=== PATIENT | female | born 1935 | race Caucasian/White ===

== ENCOUNTER 2017-08-20 13:26 | Inpatient (IN) | payer OTHER ==
[~2017-08-20] VITALS: Ht 154.9 cm; Wt 78.6 kg
[2017-08-20 15:10] LABS: Basophils # (auto) 0.1 uL; Basophils % (auto) 0.9 % (0.0-2.0); Eosinophils # (auto) 0.2 uL; Eosinophils % (auto) 1.5 % (0.0-7.0); Hematocrit 35.5 % (36.0-46.0); Hemoglobin 11.7 g/dL (12.2-16.2); Lymphocytes # (auto) 0.7 uL; Lymphocytes % (auto) 4.9 % (10.0-50.0); Mean Corpuscular Hemoglobin 28.6 pg (28.0-32.0); Mean Corpuscular Hgb Conc. 32.9 g/dL (32.0-36.0); Mean Corpuscular Volume 86.8 fL (80.0-100.0); Monocytes # (auto) 0.4 uL; Monocytes % (auto) 3.1 % (0.0-12.0); Neutrophils # (auto) 12.6 uL; Neutrophils % (auto) 89.6 % (37.0-80.0); Platelet Count (auto) 208 10^3/uL (140-450); Red Blood Cells 4.09 10^6/uL (4.0-5.20); Red Cell Distribution Width 13.8 % (11.8-14.3)
[2017-08-20 15:19] LABS: Lactic Acid w/Reflex 2.1 mmol/L (0.4-2.0)
[2017-08-20 15:21] LABS: Albumin 3.5 g/dL (3.4-5.0); BUN/Creatinine Ratio 23.3; Bilirubin, Total 0.5 mg/dL (0.2-1.0); Calcium 8.1 mg/dL (8.5-10.1); Potassium 5.3 mmol/L (3.5-5.1); Total Protein 6.8 g/dL (6.4-8.2)
[2017-08-20] MEDS ORDERED: SODIUM CHLORIDE 0.9% 1,000 ML IVB ONE (16:32)
[2017-08-20] MEDS ORDERED: SODIUM CHLORIDE 0.9% 2,000 ML IV ONE (16:45)
[2017-08-20] MEDS ORDERED: cefTRIAXone 1GM/10ml IVPUSH 10 ML IV ONE (16:45)
[2017-08-20] MEDS ORDERED: ACETAMINOPHEN 325 MG TAB PO ONE ×2 (16:45→17:15)
[2017-08-20 17:39] LABS: Magnesium 1.3 mg/dL (1.6-2.6)
[2017-08-20 17:59] LABS: INR 0.96 (0.9-1.15); Prothrombin Time 10.5 sec (9.37-12.3)
[2017-08-20] MEDS ORDERED: MORPHINE SULFATE 4 MG/ML SYR/VIAL IV PRN ×2 (18:00)
[2017-08-20] MEDS ORDERED: NITROGLYCERIN 0.4 MG SL TAB SL PRN (18:00)
[2017-08-20] MEDS ORDERED: ALBUTEROL SULF 2.5 MG/0.5ML(0.5%) NEB SOLN NEB PRN (18:00)
[2017-08-20] MEDS ORDERED: TEMAZEPAM 15 MG CAP PO PRN (18:00)
[2017-08-20] MEDS ORDERED: LORazepam 0.5 MG TAB PO PRN (18:00)
[2017-08-20] MEDS ORDERED: LACTULOSE 20Gm/30ML SOLN PO PRN (18:00)
[2017-08-20] MEDS ORDERED: PROMETHAZINE HCL 25 MG/ML 1ML IV PRN (18:00)
[2017-08-20] MEDS ORDERED: DEXTROSE (50%) 50ML SYRG IV PRN (18:00)
[2017-08-20] MEDS: SODIUM CHLORIDE 0.9% 1,000 ML IV SCH (18:41)
[2017-08-20 19:24] VITALS: BP 118/57
[2017-08-20] MEDS: ACCU-CHEK COMFORT CURVE STRIP VI SCH (19:43)
[2017-08-20] MEDS: InsuLIN REG 1unit/0.01ml Soln (100units/ml) SC SCH (19:43)
[2017-08-20] MEDS ORDERED: SODIUM POLYSTYRENE SULF 15GM/60ML SUSP PO ONE (20:15)
[2017-08-20 20:34] LABS: CRP High Sensitivity 10.2 mg/dL (< 0.3)
[2017-08-20 21:23] LABS: Urine Bacteria FEW /hpf (None Seen); Urine Blood Negative /uL (Negative); Urine Specific Gravity 1.007 (1.001-1.035); Urine WBC <1 /hpf (0 - 5)
[2017-08-20] MEDS: MAGNESIUM SULFATE 1GM/100ML 100 ML IV SCH ×2 (22:00→23:11)
[2017-08-21] VITALS (8 sets, daily range): BP systolic 112–147; BP diastolic 47–71
[2017-08-21] MEDS: metroNIDAZOLE 500MG/100ML 100 ML IV SCH ×3 (02:17→12:02)
[2017-08-21] MEDS: ACCU-CHEK COMFORT CURVE STRIP VI SCH ×4 (02:18→11:22)
[2017-08-21] MEDS: SODIUM CHLORIDE 0.9% 1,000 ML IV SCH ×2 (02:18→09:44)
[2017-08-21] MEDS: ACETAMINOPHEN 500 MG TAB PO PRN ×2 (04:08→13:48)
[2017-08-21] MEDS: InsuLIN REG 1unit/0.01ml Soln (100units/ml) SC SCH ×6 (04:33→21:33)
[2017-08-21 06:23] LABS: Basophils # (auto) 0 uL; Basophils % (auto) 0.6 % (0.0-2.0); Eosinophils # (auto) 0.2 uL; Eosinophils % (auto) 2.6 % (0.0-7.0); Hematocrit 30.4 % (36.0-46.0); Hemoglobin 10.3 g/dL (12.2-16.2); Lymphocytes # (auto) 0.4 uL; Lymphocytes % (auto) 6.1 % (10.0-50.0); Mean Corpuscular Hemoglobin 29.4 pg (28.0-32.0); Mean Corpuscular Hgb Conc. 33.8 g/dL (32.0-36.0); Monocytes # (auto) 0.3 uL; Monocytes % (auto) 4.6 % (0.0-12.0); Neutrophils # (auto) 6.4 uL; Neutrophils % (auto) 86.1 % (37.0-80.0); Platelet Count (auto) 159 10^3/uL (140-450); Red Cell Distribution Width 13.6 % (11.8-14.3); White Blood Cell 7.4 10^3/uL (4.4-10.8)
[2017-08-21] MEDS ORDERED: LISI10TA6 PO (06:29)
[2017-08-21] MEDS ORDERED: LEVO100T8 PO (06:29)
[2017-08-21] MEDS ORDERED: GABA-339 PO (06:29)
[2017-08-21] MEDS ORDERED: METF-370 PO (06:31)
[2017-08-21] MEDS ORDERED: SIMV-13 PO (06:34)
[2017-08-21 06:41] LABS: Albumin 2.5 g/dL (3.4-5.0); BUN/Creatinine Ratio 19.3; Potassium 3.6 mmol/L (3.5-5.1)
[2017-08-21 06:44] LABS: Bilirubin, Total 0.3 mg/dL (0.2-1.0); Total Protein 5.4 g/dL (6.4-8.2)
[2017-08-21] MEDS ORDERED: METO25TA5 PO (07:04)
[2017-08-21] MEDS: cefTRIAXone 1GM/10ml IVPUSH 10 ML IV SCH (09:25)
[2017-08-21] MEDS: ENOXAPARIN SOD 30 MG/0.3 ML SYRINGE SC SCH (09:25)
[2017-08-21] MEDS: AZITHROMYCIN 500MG/ 250ML 250 ML IV SCH (09:25)
[2017-08-21] MEDS ORDERED: ENOXAPARIN SOD 40 MG/0.4 ML SYRINGE SC SCH ×2 (10:00)
[2017-08-21] MEDS ORDERED: predniSONE 20 MG TAB PO ONE (15:00)
[2017-08-21] MEDS ORDERED: FUROSEMIDE 20 MG/2 ML VIAL IV ONE (15:45)
[2017-08-21] MEDS ORDERED: predniSONE 20 MG TAB PO SCH (22:00)
[2017-08-22 04:57] VITALS: BP 140/66
[2017-08-22] MEDS: InsuLIN REG 1unit/0.01ml Soln (100units/ml) SC SCH ×3 (06:38→17:00)
[2017-08-22 09:00] VITALS: BP 136/43
[2017-08-22] MEDS: cefTRIAXone 1GM/10ml IVPUSH 10 ML IV SCH (09:39)
[2017-08-22] MEDS: ENOXAPARIN SOD 30 MG/0.3 ML SYRINGE SC SCH (09:40)
[2017-08-22] MEDS: AZITHROMYCIN 500MG/ 250ML 250 ML IV SCH (09:40)
[2017-08-22] MEDS ORDERED: predniSONE 20 MG TAB PO SCH (11:01)
[2017-08-22 13:00] VITALS: BP 139/58
[2017-08-22 16:58] VITALS: BP 148/69
[2017-08-23] MEDS ORDERED: LEVOTHYROXINE SODIUM 100 MCG TAB PO SCH (07:00)
[2017-08-23] MEDS ORDERED: LISINOPRIL 10 MG TAB PO SCH (10:00)
[2017-08-23] MEDS ORDERED: metFORMIN HYDROCHLORIDE 500 MG TAB PO SCH (10:00)
[2017-08-23] MEDS ORDERED: METOPROLOL TARTRATE 25 MG TAB PO SCH (10:00)
== END 2017-08-22 19:20 | DRG 871 ==
LOC: ER 13:33 → TELE 13:34 → EAST 23:44 → TELE-EAST 08-21 03:55 → EAST 08-21 22:19
PROVIDERS: ADMIT Internal Medicine; ATTEND Hospitalist
DX: A41.9 Sepsis, unspecified organism (principal); J96.01 Acute respiratory failure with hypoxia; J18.1 Lobar pneumonia, unspecified organism; E11.22 Type 2 diabetes mellitus with diabetic chronic kidney disease; N18.3 Chronic kidney disease, stage 3 (moderate); E11.65 Type 2 diabetes mellitus with hyperglycemia; N39.0 Urinary tract infection, site not specified; E87.1 Hypo-osmolality and hyponatremia; D64.9 Anemia, unspecified; E03.9 Hypothyroidism, unspecified; E78.5 Hyperlipidemia, unspecified; E66.9 Obesity, unspecified; R19.7 Diarrhea, unspecified; I12.9 Hypertensive chronic kidney disease with stage 1 through stage 4 chronic kidney disease, or unspecified chronic kidney disease; K59.00 Constipation, unspecified; E87.6 Hypokalemia; Z79.4 Long term (current) use of insulin; Z82.49 Family history of ischemic heart disease and other diseases of the circulatory system; Z68.32 Body mass index [BMI] 32.0-32.9, adult; Z88.6 Allergy status to analgesic agent; Z90.49 Acquired absence of other specified parts of digestive tract; Z79.899 Other long term (current) drug therapy
CPT/HCPCS: 36415; 51702; 71045; 71046; 74176; 80053; 81001; 82150; 82962; 83036; 83605; 83690; 83735; 84484; 85025; 85610; 85652; 85730; 86141; 87040; 87086; 93306; 94761; 96361; 96365; 96375; J1815; J3490

== ENCOUNTER 2017-09-02 20:00 | Inpatient (IN) | payer OTHER ==
[~2017-09-02] VITALS: Ht 154.9 cm; Wt 77.7 kg
[~2017-09-02 20:00] MED LIST: GABA-339 PO; LEVO100T8 PO; LISI10TA6 PO; METF-370 PO; METO25TA5 PO; SIMV-13 PO
[2017-09-02] MEDS ORDERED: SODIUM CHLORIDE 0.9% 1,000 ML IV ONE ×2 (20:45→23:00)
[2017-09-02 20:59] LABS: Basophils # (auto) 0 uL; Basophils % (auto) 0.2 % (0.0-2.0); Eosinophils # (auto) 0 uL; Eosinophils % (auto) 0.2 % (0.0-7.0); Hematocrit 38.3 % (36.0-46.0); Hemoglobin 12.5 g/dL (12.2-16.2); Lymphocytes # (auto) 0.5 uL; Lymphocytes % (auto) 2.7 % (10.0-50.0); Mean Corpuscular Hemoglobin 28.4 pg (28.0-32.0); Mean Corpuscular Hgb Conc. 32.6 g/dL (32.0-36.0); Mean Corpuscular Volume 87.1 fL (80.0-100.0); Monocytes # (auto) 0.2 uL; Monocytes % (auto) 1.2 % (0.0-12.0); Neutrophils # (auto) 18.1 uL; Neutrophils % (auto) 95.7 % (37.0-80.0); Platelet Count (auto) 270 10^3/uL (140-450); Red Cell Distribution Width 14.1 % (11.8-14.3); White Blood Cell 18.9 10^3/uL (4.4-10.8)
[2017-09-02 21:12] LABS: INR 0.93 (0.9-1.15); Partial Thromboplastin Time 24.2 sec (23.78-33.04)
[2017-09-02 21:20] LABS: Lactic Acid w/Reflex 2.5 mmol/L (0.4-2.0)
[2017-09-02 21:22] LABS: Urine Bacteria NONE SEEN /hpf (None Seen); Urine Blood Negative /uL (Negative); Urine Specific Gravity 1.016 (1.001-1.035); Urine WBC 23 /hpf (0 - 5)
[2017-09-02 21:25] LABS: Alanine Aminotransferase 27 U/L (13-56); Albumin 3.5 g/dL (3.4-5.0); Alkaline Phosphatase 58 U/L (45-117); Anion Gap 9 (5-15); Aspartate Aminotransferase 23 U/L (15-37); BUN/Creatinine Ratio 12.3; Bilirubin, Total 0.4 mg/dL (0.2-1.0); Blood Urea Nitrogen 19 mg/dL (7-18); CRP High Sensitivity 0.24 mg/dL (< 0.3); Calcium 8.4 mg/dL (8.5-10.1); Carbon Dioxide 24 mmol/L (21-32); Chloride 104 mmol/L (98-107); GFR African American 41 mL/min; GFR Non-African American 34 mL/min; Glucose 198 mg/dL (74-106); Potassium 4.7 mmol/L (3.5-5.1); Sodium 137 mmol/L (136-145); Total Protein 6.8 g/dL (6.4-8.2)
[2017-09-02] MEDS ORDERED: ACETAMINOPHEN 500 MG TAB PO ONE (21:30)
[2017-09-02] MEDS ORDERED: PIPERACILLIN-TAZO 4.5GM 100 ML IV ONE (23:00)
[2017-09-02] MEDS ORDERED: CEFTRIAXONE SODIUM 2 GM in D5W 5% 50 ML IV ONE (23:00)
[2017-09-02] MEDS ORDERED: cefTRIAXone SOD 1,000 MG VL ONE (23:43)
[2017-09-03] MEDS ORDERED: MORPHINE SULFATE 4 MG/ML SYR/VIAL IV ONE
[2017-09-03] MEDS ORDERED: ONDANSETRON HCL 4 MG/2 ML VIAL IV PRN (00:45)
[2017-09-03] MEDS ORDERED: DEXTROSE (50%) 50ML SYRG IV PRN (00:45)
[2017-09-03] MEDS ORDERED: VANCOMYCIN 1GM/250ML 250 ML IV ONE (00:45)
[2017-09-03] MEDS ORDERED: SODIUM CHLORIDE 0.9% 1,000 ML IV SCH (00:45)
[2017-09-03] MEDS ORDERED: TEMAZEPAM 15 MG CAP PO PRN (00:45)
[2017-09-03] MEDS ORDERED: MORPHINE SULFATE 4 MG/ML SYR/VIAL IV PRN (00:45)
[2017-09-03] MEDS ORDERED: ACETAMINOPHEN 325 MG TAB PO PRN (00:45)
[2017-09-03] MEDS ORDERED: NITROGLYCERIN 0.4 MG SL TAB SL PRN (00:45)
[2017-09-03] MEDS: ACCU-CHEK COMFORT CURVE STRIP VI SCH ×3 (06:25→17:34)
[2017-09-03] MEDS: PIPERACILLIN-TAZOB 3.375GM 100 ML IV SCH ×3 (06:25→17:34)
[2017-09-03] MEDS: InsuLIN REG 1unit/0.01ml Soln (100units/ml) SC SCH ×3 (06:25→17:34)
[2017-09-03 06:50] LABS: Albumin 2.6 g/dL (3.4-5.0); BUN/Creatinine Ratio 13.5; Calcium 7.3 mg/dL (8.5-10.1); Potassium 4.7 mmol/L (3.5-5.1)
[2017-09-03 06:53] LABS: Bilirubin, Total 0.4 mg/dL (0.2-1.0); Total Protein 5.6 g/dL (6.4-8.2)
[2017-09-03] MEDS: ENOXAPARIN SOD 30 MG/0.3 ML SYRINGE SC SCH (07:42)
[2017-09-03] MEDS: PANTOPRAZOLE 40 MG TAB PO SCH (07:42)
[2017-09-03] MEDS: LEVOTHYROXINE SODIUM 100 MCG TAB PO SCH (07:42)
[2017-09-03 10:20] LABS: Lactic Acid w/Reflex 3.1 mmol/L (0.4-2.0)
[2017-09-03] MEDS ORDERED: SODIUM CHLORIDE 0.9% 1,000 ML IV ONE (11:30)
[2017-09-03] MEDS: SODIUM CHLORIDE 0.9% 1,000 ML IV SCH (11:39)
[2017-09-03] MEDS ORDERED: VANCOMYCIN PER PHARMACY 0 MG IV SCH (14:00)
[2017-09-03] MEDS: ATORVASTATIN 20 MG TAB PO SCH (22:04)
[2017-09-04] MEDS: PIPERACILLIN-TAZOB 3.375GM 100 ML IV SCH ×2 (00:39→06:25)
[2017-09-04] MEDS: InsuLIN REG 1unit/0.01ml Soln (100units/ml) SC SCH ×4 (00:51→17:39)
[2017-09-04] MEDS: SODIUM CHLORIDE 0.9% 1,000 ML IV SCH ×2 (01:10→13:40)
[2017-09-04] MEDS: ACCU-CHEK COMFORT CURVE STRIP VI SCH ×4 (06:25→17:39)
[2017-09-04 06:39] LABS: Basophils # (auto) 0.1 uL; Basophils % (auto) 1.1 % (0.0-2.0); Eosinophils # (auto) 0.4 uL; Hemoglobin 10.9 g/dL (12.2-16.2); Lymphocytes # (auto) 0.8 uL; Lymphocytes % (auto) 15.5 % (10.0-50.0); Mean Corpuscular Hemoglobin 28.9 pg (28.0-32.0); Mean Corpuscular Hgb Conc. 33.1 g/dL (32.0-36.0); Mean Corpuscular Volume 87.5 fL (80.0-100.0); Monocytes # (auto) 0.4 uL; Monocytes % (auto) 6.8 % (0.0-12.0); Neutrophils # (auto) 3.6 uL; Neutrophils % (auto) 69.6 % (37.0-80.0); Platelet Count (auto) 163 10^3/uL (140-450); Red Blood Cells 3.77 10^6/uL (4.0-5.20); Red Cell Distribution Width 14.6 % (11.8-14.3); White Blood Cell 5.1 10^3/uL (4.4-10.8)
[2017-09-04] MEDS: LEVOTHYROXINE SODIUM 100 MCG TAB PO SCH (06:39)
[2017-09-04 06:50] LABS: Albumin 2.4 g/dL (3.4-5.0); BUN/Creatinine Ratio 9.1; Calcium 7.5 mg/dL (8.5-10.1); Potassium 4.3 mmol/L (3.5-5.1)
[2017-09-04 06:52] LABS: Bilirubin, Total 0.5 mg/dL (0.2-1.0); Total Protein 5.7 g/dL (6.4-8.2)
[2017-09-04] MEDS: PANTOPRAZOLE 40 MG TAB PO SCH (09:53)
[2017-09-04] MEDS: ENOXAPARIN SOD 30 MG/0.3 ML SYRINGE SC SCH (09:53)
[2017-09-04] MEDS ORDERED: VANCOMYCIN 750 MG in D5W 5% 250 ML IV SCH (10:00)
[2017-09-04] MEDS ORDERED: LEVOFLOXACIN 250 MG TAB PO ONE (10:45)
[2017-09-04 12:00] VITALS: BP 131/50
[2017-09-04 13:00] VITALS: BP 131/50
[2017-09-04 17:00] VITALS: BP 159/79
[2017-09-04] MEDS ORDERED: VANCOMYCIN PER PHARMACY 0 MG IV SCH ×2 (18:00→18:15)
[2017-09-04 20:00] VITALS: BP 143/64
[2017-09-04 22:00] VITALS: BP 143/64
[2017-09-04] MEDS: ATORVASTATIN 20 MG TAB PO SCH (22:12)
[2017-09-05] MEDS: InsuLIN REG 1unit/0.01ml Soln (100units/ml) SC SCH ×4 (00:48→17:28)
[2017-09-05 05:00] VITALS: BP 143/72
[2017-09-05] MEDS: ACCU-CHEK COMFORT CURVE STRIP VI SCH ×4 (06:00→17:28)
[2017-09-05 06:03] LABS: Basophils # (auto) 0.1 uL; Basophils % (auto) 1.8 % (0.0-2.0); Eosinophils # (auto) 0.3 uL; Eosinophils % (auto) 6.8 % (0.0-7.0); Hematocrit 32.9 % (36.0-46.0); Hemoglobin 11.1 g/dL (12.2-16.2); Lymphocytes # (auto) 1.1 uL; Lymphocytes % (auto) 23.3 % (10.0-50.0); Mean Corpuscular Hemoglobin 28.9 pg (28.0-32.0); Mean Corpuscular Hgb Conc. 33.7 g/dL (32.0-36.0); Mean Corpuscular Volume 85.9 fL (80.0-100.0); Monocytes # (auto) 0.4 uL; Monocytes % (auto) 7.7 % (0.0-12.0); Neutrophils # (auto) 2.8 uL; Neutrophils % (auto) 60.4 % (37.0-80.0); Platelet Count (auto) 186 10^3/uL (140-450); Red Blood Cells 3.82 10^6/uL (4.0-5.20); Red Cell Distribution Width 14.2 % (11.8-14.3); White Blood Cell 4.6 10^3/uL (4.4-10.8)
[2017-09-05 06:16] LABS: Potassium 4.6 mmol/L (3.5-5.1)
[2017-09-05 06:21] LABS: BUN/Creatinine Ratio 7.4; Calcium 8.5 mg/dL (8.5-10.1)
[2017-09-05] MEDS: LEVOTHYROXINE SODIUM 100 MCG TAB PO SCH (06:34)
[2017-09-05 08:20] VITALS: BP 150/74
[2017-09-05 08:42] VITALS: BP 150/74
[2017-09-05] MEDS ORDERED: VANCOMYCIN 1GM/250ML 250 ML IV SCH (09:00)
[2017-09-05] MEDS: SODIUM CHLORIDE 0.9% 1,000 ML IV SCH ×2 (09:03→14:40)
[2017-09-05] MEDS: PANTOPRAZOLE 40 MG TAB PO SCH (09:04)
[2017-09-05] MEDS ORDERED: ENOXAPARIN SOD 40 MG/0.4 ML SYRINGE SC SCH (10:00)
[2017-09-05 13:00] VITALS: BP 152/72
[2017-09-05] MEDS ORDERED: AMOXICILLIN/CLAVUL 875 MG TAB PO ONE (15:15)
[2017-09-05 17:00] VITALS: BP 150/70
== END 2017-09-05 20:05 | DRG 871 ==
LOC: ER 20:00 → TELE 20:01 → TELE-EAST 09-04 12:21 → UNDODISIN 09-04 17:45
PROVIDERS: ADMIT Nurse Practitioner; ATTEND Internal Medicine
DX: A41.9 Sepsis, unspecified organism (principal); G93.41 Metabolic encephalopathy; N17.9 Acute kidney failure, unspecified; E87.2 Acidosis; N39.0 Urinary tract infection, site not specified; E11.22 Type 2 diabetes mellitus with diabetic chronic kidney disease; E66.01 Morbid (severe) obesity due to excess calories; N18.3 Chronic kidney disease, stage 3 (moderate); I12.9 Hypertensive chronic kidney disease with stage 1 through stage 4 chronic kidney disease, or unspecified chronic kidney disease; E78.5 Hyperlipidemia, unspecified; Z82.49 Family history of ischemic heart disease and other diseases of the circulatory system; Z80.0 Family history of malignant neoplasm of digestive organs; Z83.3 Family history of diabetes mellitus; I70.0 Atherosclerosis of aorta; Z87.01 Personal history of pneumonia (recurrent); Z71.3 Dietary counseling and surveillance; Z68.32 Body mass index [BMI] 32.0-32.9, adult
CPT/HCPCS: 36415; 36600; 51702; 71045; 80048; 80053; 80202; 81001; 82805; 82962; 83605; 83880; 84484; 85025; 85610; 85730; 86141; 87040; 87081; 87086; 93005; 96365; 96367; 96375; 97110; 97116; 97163; 97530; 99291; J0696; J1815; J2543; J7060

== ENCOUNTER 2017-09-25 17:27 | Emergency (ER) | payer OTHER, MEDICARE ==
[~2017-09-25] VITALS: Ht 154.9 cm; Wt 77.1 kg
[2017-09-25 17:45] VITALS: BP 136/61
[2017-09-25] MEDS ORDERED: ACETAMINOPHEN 325 MG TAB PO ONE (18:30)
[2017-09-25 19:27] LABS: Basophils # (auto) 0.1 uL; Basophils % (auto) 0.9 % (0.0-2.0); Eosinophils # (auto) 0.2 uL; Eosinophils % (auto) 1.7 % (0.0-7.0); Hematocrit 41.7 % (36.0-46.0); Hemoglobin 13.9 g/dL (12.2-16.2); Lymphocytes # (auto) 2.4 uL; Lymphocytes % (auto) 23.1 % (10.0-50.0); Mean Corpuscular Hemoglobin 31.7 pg (28.0-32.0); Mean Corpuscular Hgb Conc. 33.3 g/dL (32.0-36.0); Mean Corpuscular Volume 95.3 fL (80.0-100.0); Monocytes # (auto) 0.8 uL; Monocytes % (auto) 7.6 % (0.0-12.0); Neutrophils # (auto) 6.9 uL; Neutrophils % (auto) 66.7 % (37.0-80.0); Nucleated Red Blood Cells % 0.1 %; Platelet Count (auto) 242 10^3/uL (140-450); Red Blood Cells 4.38 10^6/uL (4.0-5.20); Red Cell Distribution Width 14.3 % (11.8-14.3); White Blood Cell 10.4 10^3/uL (4.4-10.8)
[2017-09-25 19:39] LABS: Chloride 113 mmol/L (98-107); Potassium 3.8 mmol/L (3.5-5.1); Sodium 143 mmol/L (136-145)
[2017-09-25 19:43] LABS: Alanine Aminotransferase 22 U/L (13-56); Albumin 3.8 g/dL (3.4-5.0); Anion Gap 10 (5-15); Aspartate Aminotransferase 17 U/L (15-37); BUN/Creatinine Ratio 9.4; Blood Urea Nitrogen 10 mg/dL (7-18); Calcium 8.2 mg/dL (8.5-10.1); Carbon Dioxide 20 mmol/L (21-32); GFR African American 64 mL/min; GFR Non-African American 53 mL/min; Glucose 89 mg/dL (74-106)
[2017-09-25 19:45] LABS: Alkaline Phosphatase 93 U/L (45-117); Bilirubin, Total 0.2 mg/dL (0.2-1.0); Total Protein 7.7 g/dL (6.4-8.2)
[2017-09-25 21:11] LABS: Urine Bacteria FEW /hpf (None Seen); Urine Blood Negative /uL (Negative); Urine Specific Gravity 1.016 (1.001-1.035); Urine WBC 17 /hpf (0 - 5)
== END 2017-09-25 21:29 | disposition left against medical advice (07) ==
LOC: ER 17:27
DX: R51 Headache (principal); R68.83 Chills (without fever); Z53.21 Procedure and treatment not carried out due to patient leaving prior to being seen by health care provider
CPT/HCPCS: 36415; 80053; 81001; 84484; 85025

== ENCOUNTER 2019-01-24 13:08 | Inpatient (IN) | payer OTHER ==
[~2019-01-24] VITALS: Ht 152.4 cm; Wt 81.0 kg
[2019-01-24 14:31] LABS: Basophils # (auto) 0.1 uL; Basophils % (auto) 0.8 % (0.0-2.0); Eosinophils # (auto) 0.2 uL; Eosinophils % (auto) 2.5 % (0.0-7.0); Hematocrit 33.2 % (36.0-46.0); Hemoglobin 10.8 g/dL (12.2-16.2); Lymphocytes # (auto) 2.4 uL; Lymphocytes % (auto) 27.9 % (10.0-50.0); Mean Corpuscular Hemoglobin 28.8 pg (28.0-32.0); Mean Corpuscular Hgb Conc. 32.5 g/dL (32.0-36.0); Mean Corpuscular Volume 88.6 fL (80.0-100.0); Monocytes # (auto) 0.5 uL; Monocytes % (auto) 6.2 % (0.0-12.0); Neutrophils # (auto) 5.3 uL; Neutrophils % (auto) 62.6 % (37.0-80.0); Platelet Count (auto) 234 10^3/uL (140-450); Red Blood Cells 3.75 10^6/uL (4.0-5.20); Red Cell Distribution Width 14.2 % (11.8-14.3); White Blood Cell 8.5 10^3/uL (4.4-10.8)
[2019-01-24 14:45] LABS: INR < 0.93 (0.9-1.15)
[2019-01-24 15:03] LABS: Alanine Aminotransferase 17 U/L (13-56); Albumin 3.4 g/dL (3.4-5.0); Anion Gap 7 (5-15); BUN/Creatinine Ratio 19.6; Blood Urea Nitrogen 44 mg/dL (7-18); Calcium 8.6 mg/dL (8.5-10.1); Carbon Dioxide 18 mmol/L (21-32); Chloride 110 mmol/L (98-107); GFR African American 27 mL/min; GFR Non-African American 22 mL/min; Glucose 132 mg/dL (74-106); Sodium 135 mmol/L (136-145)
[2019-01-24 15:08] LABS: Alkaline Phosphatase 60 U/L (45-117); Aspartate Aminotransferase 14 U/L (15-37); Bilirubin, Total 0.2 mg/dL (0.2-1.0); Total Protein 6.8 g/dL (6.4-8.2)
[2019-01-24 15:47] LABS: Potassium 6.5 mmol/L (3.5-5.1)
[2019-01-24] MEDS ORDERED: DEXTROSE (50%) 50ML SYRG IV ONE (16:00)
[2019-01-24] MEDS ORDERED: InsuLIN REG 1unit/0.01ml Soln (100units/ml) IV ONE (16:00)
[2019-01-24] MEDS ORDERED: SODIUM BICARBONATE 8.4% INJ 50ML SYRINGE IV ONE (16:00)
[2019-01-24] MEDS ORDERED: NITROGLYCERIN 0.4 MG SL TAB SL PRN (16:45)
[2019-01-24] MEDS ORDERED: ACETAMINOPHEN 325 MG TAB PO PRN (16:45)
[2019-01-24] MEDS ORDERED: MORPHINE SULF INJ 2 MG/ML SYRINGE 1ML IV PRN (16:45)
[2019-01-24] MEDS ORDERED: PROMETHAZINE HCL 25 MG/ML 1ML IV PRN (16:45)
[2019-01-24] MEDS ORDERED: SODIUM CHLORIDE 0.9% 1,000 ML IV ONE (16:45)
[2019-01-24 17:12] LABS: Cholesterol 113 mg/dL (< 200); Triglycerides 284 mg/dL (< 150)
[2019-01-24 17:14] LABS: HDL Cholesterol 57 mg/dL (40-59); LDL Cholesterol 86 mg/dL (< 100)
[2019-01-24 20:10] LABS: BUN/Creatinine Ratio 19.5; Calcium 8.5 mg/dL (8.5-10.1)
[2019-01-24 20:19] LABS: Potassium 6.2 mmol/L (3.5-5.1)
[2019-01-24 20:20] VITALS: BP 133/46
--- NOTE | 2019-01-24 21:00 | NUR ---
Admitted to room 278B. Alert and oriented x4, [place]. No distress noted. Verbalized feeling SOB on exertion. Lungs clear bilt. No chest pain since given nitro by [facility]. Potassium very high 6.3. Orders to be carried out. IV to L FA patent and saline locked. Will continue to monitor. Oriented to room and policies. Call light within reach. Edema To BLE +2.
[2019-01-24] MEDS ORDERED: SODIUM ZIRCONIUM CYCL 10 GM PAK PO ONE (21:30)
[2019-01-24 21:41] VITALS: BP 129/89
[2019-01-24] MEDS ORDERED: SODIUM BICARBONATE 8.4 % INJ 50ML VIAL IV ONE (21:45)
[2019-01-24] MEDS ORDERED: ALBUTEROL SULF 2.5 MG/0.5ML(0.5%) NEB SOLN NEB ONE (21:45)
[2019-01-24] MEDS ORDERED: PNEUMOCOCCAL VACC POLYS 25 MCG/0.5 ML VIAL IM ONE (22:15)
[2019-01-24] MEDS ORDERED: INFLUENZA QUAD 2019-2020 0.5ml SYRG IM ONE (22:15)
[2019-01-24] MEDS: ATORVASTATIN 20 MG TAB PO SCH (23:30)
[2019-01-24] MEDS: GABAPENTIN 400 MG CAP PO SCH (23:32)
[2019-01-25 01:43] LABS: Anion Gap 8 (5-15); BUN/Creatinine Ratio 22.4; Blood Urea Nitrogen 51 mg/dL (7-18); Calcium 8.6 mg/dL (8.5-10.1); Carbon Dioxide 17 mmol/L (21-32); Chloride 111 mmol/L (98-107); GFR African American 26 mL/min; GFR Non-African American 22 mL/min; Glucose 188 mg/dL (74-106); Sodium 136 mmol/L (136-145)
[2019-01-25 01:48] LABS: Potassium 5.6 mmol/L (3.5-5.1)
[2019-01-25 04:41] VITALS: BP 124/58
[2019-01-25] MEDS: LEVOTHYROXINE SODIUM 100 MCG TAB PO SCH (06:58)
--- NOTE | 2019-01-25 07:40 | NUR ---
opening Patient awake in bed, currently on bedside commode, no distress noted at this time. Will f/u with morning assessment. pending echo, ultrasound of abd currently potassium 5.6 decreasing hgb a1c 7.6 elevated and no sliding scale/insulin orders nephro consult with mimi murrieta tube wrapper cardiac on board dianne will continue to monitor this patient
[2019-01-25 08:58] VITALS: BP 125/56
[2019-01-25] MEDS: GABAPENTIN 400 MG CAP PO SCH ×2 (09:44→22:10)
[2019-01-25] MEDS: SODIUM ZIRCONIUM CYCL 10 GM PAK PO SCH (09:53)
[2019-01-25] MEDS: METOPROLOL TARTRATE 25 MG TAB PO SCH (10:00)
[2019-01-25 13:06] VITALS: BP 115/44
--- NOTE | 2019-01-25 13:16 | NUR ---
spoke to alex whitley he will place orders for resting cardiolite today, and adenosine cardiolite tomorrow for this patient as ordered by dianne
[2019-01-25] MEDS ORDERED: DEXTROSE (50%) 50ML SYRG IV PRN (14:00)
[2019-01-25] MEDS ORDERED: InsuLIN REG 1unit/0.01ml Soln (100units/ml) SC ONE (14:00)
[2019-01-25 16:52] VITALS: BP 130/49
[2019-01-25] MEDS: InsuLIN REG 1unit/0.01ml Soln (100units/ml) SC SCH ×2 (17:00→22:11)
[2019-01-25] MEDS: ACCU-CHEK COMFORT CURVE STRIP VI SCH ×2 (17:15→22:11)
[2019-01-25] MEDS ORDERED: BUMETANIDE 1mg/4ml VIAL (0.25mg/ml) IV SCH (18:00)
[2019-01-25] MEDS: BUMETANIDE 2.5mg/10ml (0.25 mg/ml) INJ IV SCH (18:20)
--- NOTE | 2019-01-25 18:54 | NUR ---
MARQUEZ CATH INSERTED MARQUEZ CATH, 16 [place], PATIENT TOLERATED WELL, CATHETER PATENT AND DRAINING, HUNG IN LOWEST POSITION, WILL CONTINUE TO MONITOR
--- NOTE | 2019-01-25 19:16 | NUR ---
Opening Shift Note Assumed care of patient asleep with breathing even and unlabored. No S/S of distress or pain. Will continue to monitor for changes Q1hr and PRN. Side rails up x2. Bed locked in lowest position. Call light within reach. Bed alarm on for safety.
[2019-01-25 22:00] VITALS: BP 127/56
[2019-01-25] MEDS: ATORVASTATIN 20 MG TAB PO SCH (22:10)
[2019-01-26 05:32] VITALS: BP 130/59
[2019-01-26] MEDS: LEVOTHYROXINE SODIUM 100 MCG TAB PO SCH (06:28)
[2019-01-26] MEDS: BUMETANIDE 2.5mg/10ml (0.25 mg/ml) INJ IV SCH ×2 (06:28→18:00)
[2019-01-26] MEDS: ACCU-CHEK COMFORT CURVE STRIP VI SCH ×4 (06:29→22:11)
[2019-01-26] MEDS: InsuLIN REG 1unit/0.01ml Soln (100units/ml) SC SCH ×4 (06:29→22:12)
[2019-01-26 06:38] LABS: BUN/Creatinine Ratio 24.9; Calcium 8.6 mg/dL (8.5-10.1); Phosphorus 3.4 mg/dL (2.5-4.90); Potassium 5.3 mmol/L (3.5-5.1)
--- NOTE | 2019-01-26 06:41 | NUR ---
2nd IV access obtained IV access obtained, via clean sterile technique by inserting 22 gauge catheter on left wrist after 1 attempt. IV secured properly. No trauma to site. Patient tolerated well.
--- NOTE | 2019-01-26 07:17 | NUR ---
Endorsed care to day shift RN.
--- NOTE | 2019-01-26 07:41 | NUR ---
Opening Patient awake in bed, bed in lowest position, call light within reach, lyle cath patent and draining. No distress noted at this time. Will f/u with morning assessment. Pending for today, echocardiogram and stress test. Will continue to monitor this patient.
--- NOTE | 2019-01-26 08:12 | NUR ---
stress biological lab technician states they were too backed up yesterday, they will do the resting test today, and adenosine tomorrow for this patient.
--- NOTE | 2019-01-26 08:19 | NUR ---
template reproduction technician per dianne, this patient recently had this test done, and does not want it to be repeated. Will continue to await the stress tests
[2019-01-26 09:11] VITALS: BP 134/59
[2019-01-26] MEDS: METOPROLOL TARTRATE 25 MG TAB PO SCH (10:00)
[2019-01-26] MEDS: SODIUM ZIRCONIUM CYCL 10 GM PAK PO SCH (10:01)
[2019-01-26] MEDS: GABAPENTIN 400 MG CAP PO SCH ×2 (10:02→22:07)
[2019-01-26] MEDS ORDERED: ADENOSINE 69 MG in GIVE UN-DILUTED 0 ML IV STA (10:47)
--- NOTE | 2019-01-26 11:00 | NUR ---
pt off unit stress lab
[2019-01-26 12:12] VITALS: BP 130/75
[2019-01-26 13:00] VITALS: BP 135/55
[2019-01-26 14:00] LABS: Urine Amorphous Crystal FEW /hpf (None Seen); Urine Blood 1+ /uL (Negative); Urine Hyaline Cast MANY /lpf (0 - 2); Urine Mucus FEW (None Seen); Urine Specific Gravity 1.013 (1.001-1.035); Urine WBC 257 /hpf (0 - 5); Urine WBC Clumps PRESENT /hpf (None Seen)
[2019-01-26 14:02] LABS: Urine Bacteria MODERATE /hpf (None Seen)
[2019-01-26 14:15] LABS: Protein, Urine 63.2 mg/dL (0.0-11.9)
[2019-01-26] MEDS ORDERED: cefTRIAXone 1GM/50ML D5W 50 ML IV ONE (14:45)
--- NOTE | 2019-01-26 16:00 | NUR ---
MD AKINS NEW ORDERS WILL PLACE AND FOLLOW
--- NOTE | 2019-01-26 16:12 | NUR ---
Assessment Pt is a 83 yr old pt who is alert and oriented. Pt lives alone but her daughter Ami lives close and helps with transportation. Ami's contact # is [phone]. Pt independent with ADLs, Cooking and cleaning. Pt admitted with sharp chest pain and she recently found out that she has congestive heart failure. Pt stated that she has a good outlook and is optimistic about life. Pt receives income. Pt referred to to fill out desired DNR and POLST forms. Pt's daughter will transport pt home. Pt expects to be d/c home upon medical clearance. No needs or concerns at this time. Addendum: 01/26/19 at 1617 by BREA MCDOWELL Amended: Links added.
--- NOTE | 2019-01-26 16:36 | NUR ---
blood sugar 471 reported to MD Villarreal, new orders for lantus now, and bid along with reg insulin orders as previously ordered
[2019-01-26] MEDS ORDERED: INSULIN LANTUS (GLARGINE) 1 /0.01ml (100units/ml) SC ONE (16:45)
[2019-01-26 17:00] VITALS: BP 124/54
--- NOTE | 2019-01-26 17:33 | NUR ---
MD DANNY BOOTH, DISCUSSES POSSIBLE NEBULIZER ON DISCHARGE, ORDERS VQSCAN
--- NOTE | 2019-01-26 19:35 | NUR ---
OPENING SHIFT NOTED Assumed care of patient from Annie MINAYA. Patient is laying in bed, high fowlers, alert and oriented x4. Patient denies pain or shortness of breath at this time. Instructed on plan of care and to call for assistance as needed, patient verbalized understanding. Bed is locked in lowest position, side rails x 2 are up, call light is within reach, and bed alarm is on. Addendum: 01/26/19 at 5787 by LORENA HODGE RN RN OPENING SHIFT NOTE
--- NOTE | 2019-01-26 21:30 | NUR ---
INCENTIVE SPIROMETER Provided patient with incentive spirometer. Educated patient on the purpose of the incentive spirometer. Educated patient on how to use the incentive spirometer and how frequent she should use the incentive spirometer. Patient verbalized education and returned demonstration was performed by the patient.
[2019-01-26 21:58] VITALS: BP 124/56
[2019-01-26] MEDS: ATORVASTATIN 20 MG TAB PO SCH (22:07)
[2019-01-27 05:24] VITALS: BP 132/76
[2019-01-27 06:24] LABS: BUN/Creatinine Ratio 27.6; Calcium 8.9 mg/dL (8.5-10.1); Potassium 4.7 mmol/L (3.5-5.1)
[2019-01-27 06:37] LABS: Basophils # (auto) 0.1 uL; Basophils % (auto) 0.9 % (0.0-2.0); Eosinophils # (auto) 0.2 uL; Eosinophils % (auto) 2.5 % (0.0-7.0); Hematocrit 34.7 % (36.0-46.0); Hemoglobin 11.8 g/dL (12.2-16.2); Lymphocytes # (auto) 2.5 uL; Lymphocytes % (auto) 27.5 % (10.0-50.0); Mean Corpuscular Hemoglobin 29.3 pg (28.0-32.0); Mean Corpuscular Hgb Conc. 33.9 g/dL (32.0-36.0); Mean Corpuscular Volume 86.7 fL (80.0-100.0); Monocytes # (auto) 0.7 uL; Monocytes % (auto) 7.2 % (0.0-12.0); Neutrophils # (auto) 5.6 uL; Neutrophils % (auto) 61.9 % (37.0-80.0); Nucleated Red Blood Cells % 0.1 %; Platelet Count (auto) 234 10^3/uL (140-450); Red Blood Cells 4.01 10^6/uL (4.0-5.20); Red Cell Distribution Width 13.8 % (11.8-14.3); White Blood Cell 9.1 10^3/uL (4.4-10.8)
[2019-01-27] MEDS: LEVOTHYROXINE SODIUM 100 MCG TAB PO SCH (06:37)
[2019-01-27] MEDS: ACCU-CHEK COMFORT CURVE STRIP VI SCH ×4 (06:38→21:49)
[2019-01-27] MEDS: INSULIN LANTUS (GLARGINE) 1 /0.01ml (100units/ml) SC SCH ×2 (06:38→21:50)
[2019-01-27] MEDS: BUMETANIDE 2.5mg/10ml (0.25 mg/ml) INJ IV SCH (06:38)
[2019-01-27] MEDS: InsuLIN REG 1unit/0.01ml Soln (100units/ml) SC SCH ×4 (06:39→21:50)
[2019-01-27 09:00] VITALS: BP 128/55
[2019-01-27] MEDS: cefTRIAXone 1GM/50ML D5W 50 ML IV SCH (09:11)
[2019-01-27] MEDS: GABAPENTIN 400 MG CAP PO SCH ×2 (09:12→21:36)
[2019-01-27] MEDS: SODIUM ZIRCONIUM CYCL 10 GM PAK PO SCH (09:12)
[2019-01-27] MEDS: METOPROLOL TARTRATE 25 MG TAB PO SCH (09:13)
--- NOTE | 2019-01-27 11:03 | NUR ---
Nutrition Assessment Notes please see attached link for complete assessment Est. Needs ABW 62 [id number] kcal (23-25 kcal/kgBW), 49-62 gms pro (0.8-1.0 gms/kgBW r/t elev RFT CKD). Will continue to monitor pertinent labs and reassess nutrient need prn Addendum: 01/27/19 at [address] Amended: Links added.
[2019-01-27 13:00] VITALS: BP 110/50
[2019-01-27 17:00] VITALS: BP 100/60
[2019-01-27] MEDS: BUMETANIDE 1 MG TAB PO SCH (18:17)
--- NOTE | 2019-01-27 19:20 | NUR ---
OPENING SHIFT NOTE Assumed care of patient from Annie MINAYA. Patient is laying in bed, high fowlers, alert and oriented x4. Patient denies pain or shortness of breath at this time. Instructed on plan of care and to call for assistance as needed, patient verbalized understanding. Bed is locked in lowest position, side rails x 2 are up, call light is within reach, and bed alarm is on.
[2019-01-27] MEDS: ATORVASTATIN 20 MG TAB PO SCH (21:36)
[2019-01-27 21:57] VITALS: BP 122/55
--- NOTE | 2019-01-27 22:00 | NUR ---
Lyle catheter dc'd Order to discontinue lyle catheter placed by . Lyle dc'd with clean technique following deflation of balloon, balloon fully intact. Patient tolerated well with no complaints of pain. Educated patient signs/symptoms of urinary retention and to notify this RN if she experiences any of those symptoms, patient verbalized understanding. Instructed patient to notify this RN, when she first voids post lyle catheter removal, patient verbalized understanding.
--- NOTE | 2019-01-28 00:20 | NUR ---
FIRST VOID POST MARQUEZ CATHETER REMOVAL Patient voided 150ml of clear yellow urine.
[2019-01-28 05:00] VITALS: BP 118/65
[2019-01-28] MEDS: BUMETANIDE 1 MG TAB PO SCH (06:07)
[2019-01-28] MEDS: ACCU-CHEK COMFORT CURVE STRIP VI SCH ×2 (06:07→11:39)
[2019-01-28] MEDS: LEVOTHYROXINE SODIUM 100 MCG TAB PO SCH (06:07)
[2019-01-28] MEDS: InsuLIN REG 1unit/0.01ml Soln (100units/ml) SC SCH ×2 (06:08→11:48)
[2019-01-28] MEDS: INSULIN LANTUS (GLARGINE) 1 /0.01ml (100units/ml) SC SCH (06:08)
--- NOTE | 2019-01-28 06:50 | NUR ---
IV INSERTION IV access obtained, via clean sterile technique by inserting 22 gauge catheter at right hand after 2 attempts. IV secured properly. No trauma to site. Patient tolerated well. IV REMOVAL IV DC'd with clean sterile technique, catheter fully intact. Pressure dressing applied to site. Patient tolerated well.
[2019-01-28 06:54] LABS: Potassium 4.2 mmol/L (3.5-5.1)
--- NOTE | 2019-01-28 07:52 | NUR ---
Opening Note Assumed pt care from [facility] nurse. Pt is a/ox4 with no s/s of distress or SOB. Pt is currently sitting upright in bed with no complaints. Discussed POC with pt; pt verbalized understanding. Pt states that her legs are still "tender" to palpation. Safety measures maintained with call light within reach, bed in lowest position and side rails up. Will continue to monitor for changes q1hr and prn.
--- NOTE | 2019-01-28 08:45 | NUR ---
Respiratory note: ABG ON ROOM AIR NOT DONE. TOOK PATIENT OFF O2 FOR 30MIN, SPO2 DID NOT DROP ANY LOWER THAN 95%. PATIENT DOES NOT WANT TO DO IF NOT NEEDED. DAUGHTER AT BEDSIDE. RN INFORMED
[2019-01-28] MEDS: GABAPENTIN 400 MG CAP PO SCH (08:59)
[2019-01-28] MEDS: SODIUM ZIRCONIUM CYCL 10 GM PAK PO SCH (08:59)
[2019-01-28] MEDS: cefTRIAXone 1GM/50ML D5W 50 ML IV SCH (08:59)
[2019-01-28] MEDS: METOPROLOL TARTRATE 25 MG TAB PO SCH (09:00)
[2019-01-28 09:05] VITALS: BP 129/60
--- NOTE | 2019-01-28 10:20 | NUR ---
PT at Bedside PT ambulated with pt with a walker. Pt able to ambulate without difficulty around unit.
[2019-01-28 12:49] VITALS: BP 111/65
--- NOTE | 2019-01-28 13:24 | NUR ---
IV and Tele Box D/C'ed Iv to pt's R hand d/c'ed. Removed fully intact; site is asymptomatic. Pt tolerated removal well. Gauze applied to site for 3 minutes and then wrapped in coban. Pt instructed to keep dressing on for 30 minutes; pt verbalized understanding. Tele box 66 retuned to the ICU monitor station.
--- NOTE | 2019-01-28 13:31 | NUR ---
Pt D/C'ed off Unit Pt ambulated using her personal walker off unit accompanied by her daughter. Pt has all belongings, education material, prescriptions and all questions were answered at time of d/c.
== END 2019-01-28 13:30 | disposition home or self-care (01) | DRG 291 ==
LOC: EDBD 13:08 → ER 13:08 → TELE 13:09 → TELE-WESTW 20:22
PROVIDERS: ADMIT Hospitalist; ATTEND Hospitalist
DX: I13.0 Hypertensive heart and chronic kidney disease with heart failure and stage 1 through stage 4 chronic kidney disease, or unspecified chronic kidney disease (principal); N17.0 Acute kidney failure with tubular necrosis; I50.33 Acute on chronic diastolic (congestive) heart failure; J96.00 Acute respiratory failure, unspecified whether with hypoxia or hypercapnia; J98.11 Atelectasis; N39.0 Urinary tract infection, site not specified; N18.4 Chronic kidney disease, stage 4 (severe); D50.9 Iron deficiency anemia, unspecified; E87.5 Hyperkalemia; E11.22 Type 2 diabetes mellitus with diabetic chronic kidney disease; E03.9 Hypothyroidism, unspecified; J44.9 Chronic obstructive pulmonary disease, unspecified; E78.5 Hyperlipidemia, unspecified; M54.9 Dorsalgia, unspecified; G89.29 Other chronic pain; E78.00 Pure hypercholesterolemia, unspecified; E11.21 Type 2 diabetes mellitus with diabetic nephropathy; E11.65 Type 2 diabetes mellitus with hyperglycemia; B95.2 Enterococcus as the cause of diseases classified elsewhere; I25.10 Atherosclerotic heart disease of native coronary artery without angina pectoris; Z88.5 Allergy status to narcotic agent; Z83.3 Family history of diabetes mellitus; Z82.49 Family history of ischemic heart disease and other diseases of the circulatory system; Z68.34 Body mass index [BMI] 34.0-34.9, adult; Z79.899 Other long term (current) drug therapy; Z79.84 Long term (current) use of oral hypoglycemic drugs; Z80.0 Family history of malignant neoplasm of digestive organs; Z28.21 Immunization not carried out because of patient refusal
CPT/HCPCS: 36415; 71045; 71250; 76775; 78452; 78582; 80048; 80053; 80061; 81001; 82570; 82962; 83036; 83735; 83880; 84100; 84156; 84300; 84443; 84484; 84550; 85025; 85610; 85730; 87086; 87088; 87186; 93005; 93017; 93970; 94644; 94761; 96361; 96374; 96375; 97116; 97163; 97530; G0378; J0153; J0696; J1815

== ENCOUNTER 2019-02-11 13:13 | Inpatient (IN) | payer OTHER ==
[~2019-02-11] VITALS: Ht 154.9 cm; Wt 83.5 kg
[2019-02-11 16:41] LABS: Basophils # (auto) 0.1 uL; Basophils % (auto) 1.3 % (0.0-2.0); Eosinophils # (auto) 0.2 uL; Eosinophils % (auto) 2.7 % (0.0-7.0); Hematocrit 34.7 % (36.0-46.0); Hemoglobin 11.4 g/dL (12.2-16.2); Lymphocytes % (auto) 25.9 % (10.0-50.0); Mean Corpuscular Hgb Conc. 32.9 g/dL (32.0-36.0); Mean Corpuscular Volume 88.3 fL (80.0-100.0); Monocytes # (auto) 0.5 uL; Neutrophils % (auto) 64.1 % (37.0-80.0); Platelet Count (auto) 258 10^3/uL (140-450); Red Blood Cells 3.93 10^6/uL (4.0-5.20); Red Cell Distribution Width 14.3 % (11.8-14.3); White Blood Cell 7.9 10^3/uL (4.4-10.8)
[2019-02-11 16:48] LABS: Albumin 3.5 g/dL (3.4-5.0); Anion Gap 10 (5-15); Blood Urea Nitrogen 32 mg/dL (7-18); Calcium 8.7 mg/dL (8.5-10.1); Carbon Dioxide 26 mmol/L (21-32); Chloride 104 mmol/L (98-107); Glucose 256 mg/dL (74-106); Potassium 5.1 mmol/L (3.5-5.1); Sodium 140 mmol/L (136-145)
[2019-02-11 16:52] LABS: Alanine Aminotransferase 20 U/L (13-56); Alkaline Phosphatase 54 U/L (45-117); Aspartate Aminotransferase 19 U/L (15-37); BUN/Creatinine Ratio 19.4; Bilirubin, Total 0.3 mg/dL (0.2-1.0); GFR African American 38 mL/min; GFR Non-African American 32 mL/min; Total Protein 7.1 g/dL (6.4-8.2)
[2019-02-11] MEDS ORDERED: MORPHINE SULF INJ 2 MG/ML SYRINGE 1ML IV ONE (19:30)
[2019-02-11] MEDS ORDERED: ONDANSETRON HCL 4 MG/2 ML VIAL IV ONE (19:30)
[2019-02-11 20:02] LABS: INR 0.96 (0.9-1.15); Partial Thromboplastin Time 25.9 sec (23.64-32.05)
[2019-02-11 20:21] LABS: Urine Bacteria FEW /hpf (None Seen); Urine Blood Negative /uL (Negative); Urine Specific Gravity 1.008 (1.001-1.035); Urine WBC 41 /hpf (0 - 5)
[2019-02-11] MEDS ORDERED: MORPHINE SULFATE 4 MG/ML SYR/VIAL IV ONE (22:00)
[2019-02-11] MEDS ORDERED: DEXTROSE (50%) 50ML SYRG IV PRN (22:15)
[2019-02-11] MEDS ORDERED: NITROGLYCERIN 0.4 MG SL TAB SL PRN (22:15)
[2019-02-11] MEDS ORDERED: MORPHINE SULF INJ 2 MG/ML SYRINGE 1ML IV PRN (22:15)
[2019-02-11] MEDS ORDERED: cefTRIAXone 1GM/50ML D5W 50 ML IV ONE (22:15)
[2019-02-12] VITALS (7 sets, daily range): BP systolic 93–149; BP diastolic 37–72
--- NOTE | 2019-02-12 | NUR ---
Telemetry admit from [facility] admitted to Telemetry unit after SBAR received. Patient oriented to Chano Arana, primary RN, unit, room, bed, and unit policies regarding patient care and visiting hours. Patient now on continuous telemetry monitoring, tele box #57 and telemetry reading on arrival to unit is SR. Patient placed on bedside oxygen, weighed by bedscale and encouraged to call if they need something. All questions and concerns addressed, patient verbalized understanding.
--- NOTE | 2019-02-12 05:20 | NUR ---
ASSESSMENT Patient has been given nitro x1 for 6/10 chest pain. The patient reported 0/10 chest pain after nitro administration. Will continue to monitor the patient's status.
[2019-02-12] MEDS: GABAPENTIN 300 MG CAP PO SCH ×3 (06:31→22:20)
[2019-02-12] MEDS: LEVOTHYROXINE SODIUM 100 MCG TAB PO SCH (06:31)
[2019-02-12] MEDS: InsuLIN REG 1unit/0.01ml Soln (100units/ml) SC SCH ×4 (06:32→22:00)
[2019-02-12] MEDS: ACCU-CHEK COMFORT CURVE STRIP VI SCH ×4 (06:32→22:00)
[2019-02-12 06:33] LABS: BUN/Creatinine Ratio 22.1; Calcium 8.6 mg/dL (8.5-10.1); Potassium 4.5 mmol/L (3.5-5.1)
--- NOTE | 2019-02-12 07:00 | NUR ---
Patient states that she wants to move into another room. She states that she is uncomfortable due to the patient in A bed. Will notify the charge nurse about possible room change.
--- NOTE | 2019-02-12 07:05 | NUR ---
Opening Shift Note Assumed care of patient, awake and alert. No S/S of distress/SOB or pain. Instructed on POC and to call for assist PRN, will continue to monitor for changes Q1hr and PRN. Bed set in lowest locked position, call light within reach and side rails up x 2 for safety.
--- NOTE | 2019-02-12 07:35 | NUR ---
The patient will be moved to room 95B.
[2019-02-12] MEDS ORDERED: cefTRIAXone 1GM/50ML D5W 50 ML IV SCH (09:00)
[2019-02-12] MEDS: METOPROLOL TARTRATE 25 MG TAB PO SCH ×2 (10:13→22:00)
[2019-02-12] MEDS: FUROSEMIDE 40 MG TAB PO SCH (10:14)
[2019-02-12] MEDS ORDERED: VANCOMYCIN PER PHARMACY 0 MG IV SCH (14:00)
[2019-02-12] MEDS ORDERED: ACETAMINOPHEN 325 MG TAB PO PRN (14:00)
[2019-02-12] MEDS ORDERED: VANCOMYCIN 1GM/250ML 250 ML IV ONE (15:00)
--- NOTE | 2019-02-12 18:55 | NUR ---
End of Shift Patient sitting up in bed, shows no signs of distress at this time. Bed in lowest locked position, side rails up x2 and call light within reach.
[2019-02-12] MEDS: PIPERACILLIN-TAZOB 3.375GM 100 ML IV SCH ×2 (19:21→23:59)
--- NOTE | 2019-02-12 20:00 | NUR ---
Opening Shift Note Assumed care of patient, awake and alert. No S/S of distress/SOB or pain. Instructed on POC and to call for assist PRN, will continue to monitor for changes Q1hr and PRN. Bed in low position and call light in reach.
[2019-02-12] MEDS: ATORVASTATIN 20 MG TAB PO SCH (22:21)
--- NOTE | 2019-02-13 | NUR ---
IV to LFA noted with leakage. IV discontinued with canula intact. New IV 22 gauge inserted to left wrist.
[2019-02-13 05:00] VITALS: BP 109/47
[2019-02-13 05:56] LABS: Basophils # (auto) 0.1 uL; Basophils % (auto) 0.8 % (0.0-2.0); Eosinophils # (auto) 0.2 uL; Eosinophils % (auto) 3.6 % (0.0-7.0); Hemoglobin 10.8 g/dL (12.2-16.2); Lymphocytes # (auto) 0.5 uL; Lymphocytes % (auto) 7.5 % (10.0-50.0); Mean Corpuscular Hemoglobin 29.4 pg (28.0-32.0); Mean Corpuscular Hgb Conc. 33.9 g/dL (32.0-36.0); Mean Corpuscular Volume 86.8 fL (80.0-100.0); Monocytes # (auto) 0.5 uL; Monocytes % (auto) 7.2 % (0.0-12.0); Neutrophils # (auto) 5.4 uL; Neutrophils % (auto) 80.9 % (37.0-80.0); Platelet Count (auto) 187 10^3/uL (140-450); Red Blood Cells 3.68 10^6/uL (4.0-5.20); Red Cell Distribution Width 14.2 % (11.8-14.3); White Blood Cell 6.7 10^3/uL (4.4-10.8)
[2019-02-13 06:14] LABS: BUN/Creatinine Ratio 18.1; Calcium 7.7 mg/dL (8.5-10.1); Magnesium 1.7 mg/dL (1.6-2.6); Potassium 3.8 mmol/L (3.5-5.1)
[2019-02-13] MEDS: LEVOTHYROXINE SODIUM 100 MCG TAB PO SCH (06:23)
[2019-02-13] MEDS: GABAPENTIN 300 MG CAP PO SCH ×3 (06:23→22:36)
[2019-02-13] MEDS: PIPERACILLIN-TAZOB 3.375GM 100 ML IV SCH ×3 (06:24→17:11)
[2019-02-13] MEDS: InsuLIN REG 1unit/0.01ml Soln (100units/ml) SC SCH ×4 (06:36→22:00)
[2019-02-13] MEDS: ACCU-CHEK COMFORT CURVE STRIP VI SCH ×4 (06:36→22:00)
--- NOTE | 2019-02-13 06:59 | NUR ---
Closing Note: Patient awake no distress noted. Patient denies pain and discomfort.
[2019-02-13 09:00] VITALS: BP 104/44
[2019-02-13] MEDS: FUROSEMIDE 40 MG TAB PO SCH (10:00)
--- NOTE | 2019-02-13 10:24 | NUR ---
Charge reports Ami called for patient. Called Ami back, no answer, left message.
[2019-02-13] MEDS: METOPROLOL TARTRATE 25 MG TAB PO SCH ×2 (10:55→22:36)
--- NOTE | 2019-02-13 12:46 | NUR ---
DR REYES SAW PATIENT. NOTIFIED DAUGHTER WILL LEAVE FRIDAY TO GO OUT OF TOWN FOR 1 WEEK. PT MAY NEED SNF DEPENDING ON HER DC NEEDS. AWARE. MD REPORTS HE IS WAITING FOR CULTURES TO COME BACK.
--- NOTE | 2019-02-13 12:51 | NUR ---
NOTIFIED PT HAS FREQUENT UTI'S AND THAT DAUGHTER GABBY WOULD LIKE MD TO CALL HER, PER DAUGHTER REQUEST. MD AWARE.
--- NOTE | 2019-02-13 12:52 | NUR ---
DR SAMS REQUESTS PT EVALUATION. CALLED PBX AND PAGED PHYSICAL THERAPY FOR EVAL.
[2019-02-13] MEDS ORDERED: VANCOMYCIN 500 MG in D5W 5% 100 ML IV ONE ×2 (13:00→20:00)
--- NOTE | 2019-02-13 14:24 | NUR ---
PHARMACY CALLED AND REPORTS THEY NEED URINE SAMPLE FOR URINE CULTURE. PT NOTIFIED AND CUP BY BEDSIDE COMMODE. PT INSTRUCTED TO HIT CALL LIGHT WHEN SAMPLE IS READY. PT AWARE.
--- NOTE | 2019-02-13 16:00 | NUR ---
URINE SAMPLE SENT TO LAB.
[2019-02-13 17:00] VITALS: BP 107/40
[2019-02-13 21:44] VITALS: BP 111/51
[2019-02-13] MEDS: ATORVASTATIN 20 MG TAB PO SCH (22:34)
[2019-02-14] MEDS: PIPERACILLIN-TAZOB 3.375GM 100 ML IV SCH ×2 (00:30→06:31)
[2019-02-14 05:31] VITALS: BP 116/48
[2019-02-14 05:58] LABS: BUN/Creatinine Ratio 17.8; Calcium 8.1 mg/dL (8.5-10.1)
[2019-02-14] MEDS: LEVOTHYROXINE SODIUM 100 MCG TAB PO SCH (06:30)
[2019-02-14] MEDS: GABAPENTIN 300 MG CAP PO SCH ×2 (06:30→12:04)
[2019-02-14] MEDS: InsuLIN REG 1unit/0.01ml Soln (100units/ml) SC SCH ×2 (06:43→12:03)
[2019-02-14] MEDS: ACCU-CHEK COMFORT CURVE STRIP VI SCH ×2 (06:43→12:03)
--- NOTE | 2019-02-14 07:28 | NUR ---
Patient resting comfortably. No change in status. Report given to AM RN.
--- NOTE | 2019-02-14 07:50 | NUR ---
PT RESTING IN BED, NO DISTRESS NOTED. PT REPORTS NO PAIN AT THIS TIME. PT ENCOURAGED TO USE CALL LIGHT PRN, WILL CONTINUE TO MONITOR.
--- NOTE | 2019-02-14 08:00 | NUR ---
CALLED PBX AND PAGED PHYSICAL THERAPY TO COME DO EVALUATION.
--- NOTE | 2019-02-14 08:11 | NUR ---
PHYSICAL THERAPY CALLED BACK AND REPORTS EVALUATION DONE.
[2019-02-14 09:00] VITALS: BP 110/43
[2019-02-14] MEDS: METOPROLOL TARTRATE 25 MG TAB PO SCH (09:03)
[2019-02-14] MEDS: FUROSEMIDE 40 MG TAB PO SCH (09:05)
--- NOTE | 2019-02-14 09:41 | NUR ---
DISCHARGE PAPERWORK RECEIVED IN REPORT PT WAS SEEN BY DR LAURENT FOR CARDIOLOGY. UNABLE TO FIND REPORT.
--- NOTE | 2019-02-14 10:07 | NUR ---
PT REPORTS IV IS LEAKING, ASSESSED IV SITE, EDEMA NOTED WITH NO ERYTHEMA. IV DC'D AND PRESSURE DRESSING APPLIED. CALLED LAB FOR URINE CULTURE RESULTS. LAB REPORTS THEY WILL RELEASE REPORT RIGHT NOW.
--- NOTE | 2019-02-14 11:01 | NUR ---
DR PINEDA SAW PATIENT. REQUESTS ADDITIONAL INFORMATION FROM PHYSICAL THERAPY ABOUT PATIENT AMBULATION. CALLED [facility] AND PAGED SAMI, AWAITING CALL BACK.
--- NOTE | 2019-02-14 11:02 | NUR ---
ATTEMPTED NEW IV TWICE USING STERILE TECHNIQUE. UNSUCCESSFUL, CHARGE NURSE NOTIFIED. DANIELLE REPORTS SHE WILL ATTEMPT IV PENDING PT DISCHARGE PLANS. SPOKE WITH DR EDWIN MD REPORTS HE WILL CHANGE ABX TO PO.
--- NOTE | 2019-02-14 11:30 | NUR ---
SPOKE WITH DR PINEDA AT NURSING STATION. NEW ORDERS TO DC ABX. REPORTS PATIENT CAN DC HOME WITH HOME HEALTH OR TO [facility], DEPENDING ON WHAT PHYSICAL THERAPY RECOMMENDS.
--- NOTE | 2019-02-14 12:10 | NUR ---
CALLED PBX AND REQUESTED SAMI CALL BACK FOR RECOMMENDATION, AWAITING CALL BACK.
[2019-02-14 13:00] VITALS: BP 138/39
--- NOTE | 2019-02-14 13:01 | NUR ---
SAMI CAME TO NURSING STATION, SAMI REPORTS PATIENT AMBULATED 150 FT WITH HIM, AND HE RECOMMENDS HOME HEALTH. HE REPORTS PT DOES NOT QUALIFY FOR SNIFF.
--- NOTE | 2019-02-14 13:21 | NUR ---
NOTIFIED PATIENT SHE DOES NOT QUALIFY FOR SNF PLACEMENT. PT REQUESTS A CALL TO HER FRIEND GABBY FOR A RIDE HOME. CALLED GABBY AND LEFT MESSAGE, AWAITING CALL BACK.
--- NOTE | 2019-02-14 13:27 | NUR ---
CALLED GABBY PATIENT DAUGHTER AND UPDATED HER ON STATUS. LET GABBY KNOW PT WILL BE DISCHARGED HOME WITH HOME HEALTH. GABBY PATIENT'S FRIEND CALLED BACK, SHE REPORTS SHE IS ON HER WAY TO THE HOSPITAL TO GIVE PATIENT A RIDE HOME. CALLED PBX AND PAGED ETL CONSULTANT TO ARRANGE HOME HEALTH. AWAITING CALL BACK.
--- NOTE | 2019-02-14 14:22 | NUR ---
SPOKE WITH PATRICK DE LA ROSA. PATRICK REPORTS TO FAX PAPER WORK TO [facility]. , AND THEN PATIENT CAN BE DISCHARGED. Addendum: 02/14/19 at 1425 by LEO CORONEL RN SPOKE WITH PATRICK ABOUT PT WALKER, NOTIFIED HER PT WALKER AT HER DAUGHTERS HOUSE AND DAUGHTER IS GOING TO HAVE IT BROUGHT TO PATIENT. ASKED PATRICK IF PT NEEDED AN ORDER FOR WALKER IN MEANTIME. PATRICK REPORTS NO, PT WOULD NOT QUALIFY.
--- NOTE | 2019-02-14 14:40 | NUR ---
FAXED FACE SHEET, H AND P AND ORDER SHEET TO [facility].
[2019-02-14 14:41] VITALS: BP 138/39
[2019-02-14] MEDS ORDERED: VANCOMYCIN 750mg/250ml 250 ML IV ONE (15:00)
--- NOTE | 2019-02-14 15:47 | NUR ---
Discharge instructions given as ordered. Encourage to follow up with PMD and Dr. Cardoza as instructed. All questions and concerns addressed. Patient verbalized understanding. Medication reconciliation form completed and copy given to patient. IV removed with catheter intact, pressure dressing applied. Patient notified per daughter request, that her walker will be delivered to her house by either her grand daughter or son in law tonight or tomorrow morning. Patient notified [facility] would be seeing her within 24 to 48 hours for physical therapy. Telemetry unit returned to ICU. Patient taken to vehicle via wheelchair with all personal belongings, accompanied by staff. No distress noted at time of departure.
--- NOTE | 2019-02-14 17:03 | NUR ---
SS consult regarding home health upon discharge. Spoke with Xiao field case manager for [employer] who advised their contracted vendor was [employer]. Instructed covering nurse to fax face sheet, h&p, and order to agency and provided contact number. Additionally notified [facility] field case manager that referral went to [facility]. Pt's daughter requested fww because pt had left her fww at the other daughters home. Informed nurse that Pt would not be able to get a replacement or temporary fww according to health plan and medicare guideline. Per nurse daughter to followup with family member to retrieved fww for pt.
== END 2019-02-14 15:35 | disposition home health service (06) | DRG 313 ==
LOC: ER 13:13 → TELE 13:14 → TELE-WESTW 23:32
PROVIDERS: ADMIT Internal Medicine; ATTEND Internal Medicine
DX: R07.89 Other chest pain (principal); N17.9 Acute kidney failure, unspecified; I11.0 Hypertensive heart disease with heart failure; N28.9 Disorder of kidney and ureter, unspecified; I50.9 Heart failure, unspecified; R50.9 Fever, unspecified; E11.42 Type 2 diabetes mellitus with diabetic polyneuropathy; E78.5 Hyperlipidemia, unspecified; E03.9 Hypothyroidism, unspecified; Z82.49 Family history of ischemic heart disease and other diseases of the circulatory system; Z83.3 Family history of diabetes mellitus; Z88.5 Allergy status to narcotic agent; Z90.49 Acquired absence of other specified parts of digestive tract; E11.65 Type 2 diabetes mellitus with hyperglycemia
CPT/HCPCS: 36415; 71045; 80048; 80053; 80202; 81001; 82962; 83735; 83880; 84484; 85025; 85379; 85610; 85730; 87040; 87081; 87086; 93005; 97116; 97163; 97530; G0378; J0696; J1815; J2405; J2543; J7060

== ENCOUNTER 2019-03-04 12:25 | Inpatient (IN) | payer OTHER ==
[~2019-03-04] VITALS: Ht 152.4 cm; Wt 81.1 kg
[2019-03-04] MEDS ORDERED: ONDANSETRON HCL 4 MG/2 ML VIAL IV ONE (12:45)
[2019-03-04] MEDS ORDERED: MORPHINE SULF INJ 2 MG/ML SYRINGE 1ML IV ONE (12:45)
[2019-03-04 13:17] LABS: Basophils # (auto) 0.1 uL; Eosinophils # (auto) 0.1 uL; Eosinophils % (auto) 0.7 % (0.0-7.0); Hematocrit 34.1 % (36.0-46.0); Hemoglobin 11.1 g/dL (12.2-16.2); Lymphocytes % (auto) 17.5 % (10.0-50.0); Mean Corpuscular Hemoglobin 28.3 pg (28.0-32.0); Mean Corpuscular Hgb Conc. 32.7 g/dL (32.0-36.0); Mean Corpuscular Volume 86.6 fL (80.0-100.0); Monocytes # (auto) 0.8 uL; Monocytes % (auto) 6.9 % (0.0-12.0); Neutrophils # (auto) 8.5 uL; Neutrophils % (auto) 73.9 % (37.0-80.0); Platelet Count (auto) 223 10^3/uL (140-450); Red Blood Cells 3.94 10^6/uL (4.0-5.20); Red Cell Distribution Width 13.8 % (11.8-14.3); White Blood Cell 11.5 10^3/uL (4.4-10.8)
[2019-03-04 13:18] LABS: Albumin 3.6 g/dL (3.4-5.0); Anion Gap 11 (5-15); Blood Urea Nitrogen 32 mg/dL (7-18); Calcium 8.3 mg/dL (8.5-10.1); Carbon Dioxide 24 mmol/L (21-32); Chloride 102 mmol/L (98-107); Glucose 189 mg/dL (74-106); Magnesium 1.7 mg/dL (1.6-2.6); Potassium 3.9 mmol/L (3.5-5.1); Sodium 137 mmol/L (136-145)
[2019-03-04 13:25] LABS: Alanine Aminotransferase 17 U/L (13-56); Alkaline Phosphatase 57 U/L (45-117); Aspartate Aminotransferase 13 U/L (15-37); BUN/Creatinine Ratio 23.4; Bilirubin, Total 0.5 mg/dL (0.2-1.0); GFR African American 47 mL/min; GFR Non-African American 39 mL/min; Total Protein 6.9 g/dL (6.4-8.2)
[2019-03-04 13:28] LABS: INR 1.03 (0.9-1.15); Partial Thromboplastin Time 25.5 sec (23.64-32.05)
[2019-03-04] MEDS ORDERED: ACETAMINOPHEN 325 MG TAB PO PRN (15:15)
[2019-03-04] MEDS ORDERED: INSULIN LISPRO (HUMAN) 100 UNITS/ML ML SC ONE (15:15)
[2019-03-04] MEDS ORDERED: MORPHINE SULF INJ 2 MG/ML SYRINGE 1ML IV PRN ×2 (15:15→15:30)
[2019-03-04] MEDS ORDERED: ONDANSETRON HCL 4 MG/2 ML VIAL IV PRN (15:15)
[2019-03-04] MEDS ORDERED: NITROGLYCERIN 0.4 MG SL TAB SL PRN (15:30)
[2019-03-04] MEDS ORDERED: DEXTROSE (50%) 50ML SYRG IV PRN (15:45)
[2019-03-04] MEDS: InsuLIN REG 1unit/0.01ml Soln (100units/ml) SC SCH ×2 (17:47→21:54)
[2019-03-04] MEDS: ACCU-CHEK COMFORT CURVE STRIP VI SCH ×2 (17:48→21:53)
--- NOTE | 2019-03-04 20:05 | NUR ---
Telemetry admit from [facility] admitted to Telemetry unit after SBAR received. Patient oriented to Marge wellington RN, unit, room, bed, and unit policies regarding patient care and visiting hours. Patient now on continuous telemetry monitoring, tele box # 53 and telemetry reading on arrival to unit is sr 82 first degree heart block. Patient placed on bedside oxygen, weighed by bed scale and encouraged to call if they need something. All questions and concerns addressed, patient verbalized understanding. Note: Came per wheelchair awake alert oriented x 4, placed in the bed comfortably,vital signs checked not in respiratory distress.
[2019-03-04] MEDS: GABAPENTIN 400 MG CAP PO SCH (21:21)
[2019-03-04 22:00] VITALS: BP 113/54
[2019-03-05 05:00] VITALS: BP 131/60
[2019-03-05 05:28] LABS: Basophils # (auto) 0.1 uL; Eosinophils # (auto) 0.1 uL; Eosinophils % (auto) 2.3 % (0.0-7.0); Hematocrit 32.9 % (36.0-46.0); Lymphocytes % (auto) 32.4 % (10.0-50.0); Mean Corpuscular Hemoglobin 28.9 pg (28.0-32.0); Mean Corpuscular Hgb Conc. 33.4 g/dL (32.0-36.0); Mean Corpuscular Volume 86.4 fL (80.0-100.0); Monocytes # (auto) 0.5 uL; Monocytes % (auto) 8.9 % (0.0-12.0); Neutrophils # (auto) 3.4 uL; Neutrophils % (auto) 55.4 % (37.0-80.0); Platelet Count (auto) 204 10^3/uL (140-450); Red Cell Distribution Width 13.9 % (11.8-14.3); White Blood Cell 6.2 10^3/uL (4.4-10.8)
[2019-03-05 05:48] LABS: BUN/Creatinine Ratio 24.1; Calcium 8.2 mg/dL (8.5-10.1); Magnesium 1.9 mg/dL (1.6-2.6); Potassium 4.5 mmol/L (3.5-5.1)
[2019-03-05] MEDS: InsuLIN REG 1unit/0.01ml Soln (100units/ml) SC SCH ×2 (06:42→11:51)
[2019-03-05] MEDS: ACCU-CHEK COMFORT CURVE STRIP VI SCH ×2 (06:42→11:51)
[2019-03-05] MEDS ORDERED: LEVOTHYROXINE SODIUM 100 MCG TAB PO SCH (07:00)
--- NOTE | 2019-03-05 07:22 | NUR ---
Report given to Oscar Noble, patient is resting no distress.
--- NOTE | 2019-03-05 07:30 | NUR ---
Opening Shift Note Assumed care of patient, who is alert and oriented x4. No S/S of distress/SOB or pain. Bed is in the lowest position with 2x side rails up for safety. Call light is within reach. Instructed on POC and to call for assist PRN, will continue to monitor for changes Q1hr and PRN.
[2019-03-05 08:00] VITALS: BP 132/62
[2019-03-05 09:00] VITALS: BP 128/58
[2019-03-05] MEDS: GABAPENTIN 400 MG CAP PO SCH (09:23)
--- NOTE | 2019-03-05 09:45 | NUR ---
DR EDWIN BOOTH ORDERS RECEIVED AND WILL CARRY OUT.
[2019-03-05] MEDS ORDERED: LISINOPRIL 10 MG TAB PO SCH (10:00)
[2019-03-05] MEDS ORDERED: ATORVASTATIN 20 MG TAB PO SCH (10:00)
[2019-03-05] MEDS ORDERED: LEVOFLOXACIN 500MG 100 ML IV SCH (10:00)
[2019-03-05] MEDS ORDERED: METOPROLOL TARTRATE 25 MG TAB PO SCH (10:00)
[2019-03-05 11:23] LABS: Urine Bacteria NONE SEEN /hpf (None Seen); Urine Blood Negative /uL (Negative); Urine Specific Gravity 1.015 (1.001-1.035); Urine WBC 2 /hpf (0 - 5)
[2019-03-05 12:35] VITALS: BP 114/51
[2019-03-05 13:11] VITALS: BP 114/51
--- NOTE | 2019-03-05 13:39 | NUR ---
PER DR PEACOCK PATIENT IS CLEARED FROM PULMONARY STANDPOINT.
--- NOTE | 2019-03-05 14:07 | NUR ---
Assessment and SS consult Pt is an 84 yr old alert and oriented female. SS consult given due to patient living alone and needing help. Pt lives alone with an adult daughter, Ami, living nearby who helps with transporting, and is her emergency contact at [phone]. Pt stated that she feels safe living alone and that she is able to meet her needs. Pt is ambulatory and uses a walker for longer outings. Pt is independent with ADL's, cooking and cleaning. Pt came to hospital with shortness of breath and chest pain. Pt receives [employer] income and has no interest in AD. Pt stated that she connected with a [facility] that is supposed to start doing PT soon. Pt states that she will be discharged today and that her daughter will take her home. No needs or concerns at this time. Addendum: 03/05/19 at 1414 by BREA MCDOWELL Amended: Links added.
--- NOTE | 2019-03-05 14:50 | NUR ---
MD. Benavidez At bedside. Patient to follow up in 1-2 weeks [address] his office. Per Dr. Benavidez patient cleared from cardiology standpoint.
[2019-03-05 16:55] VITALS: BP 120/60
--- NOTE | 2019-03-05 17:16 | NUR ---
Discharge instructions given as ordered. Encourage to follow up with PMD as instructed. All questions and concerns addressed. Patient verbalized understanding. Medication reconciliation form completed and copy given to patient. Home medications held in Pharmacy returned to patient, and no needed vaccines given. IV removed with catheter intact, pressure dressing applied. Telemetry unit returned to ICU. Patient taken to vehicle via wheelchair with all personal belongings, accompanied by staff and family member. No distress noted at time of departure.
== END 2019-03-05 17:30 | disposition home or self-care (01) | DRG 202 ==
LOC: EDBD 12:25 → EDUNIT# 12:25 → ER 12:28 → TELE 12:29 → TELE-WESTW 20:28
PROVIDERS: ADMIT Internal Medicine; ATTEND Internal Medicine
DX: J40 Bronchitis, not specified as acute or chronic (principal); N17.0 Acute kidney failure with tubular necrosis; I13.0 Hypertensive heart and chronic kidney disease with heart failure and stage 1 through stage 4 chronic kidney disease, or unspecified chronic kidney disease; E78.5 Hyperlipidemia, unspecified; E03.9 Hypothyroidism, unspecified; E11.22 Type 2 diabetes mellitus with diabetic chronic kidney disease; I50.9 Heart failure, unspecified; J47.9 Bronchiectasis, uncomplicated; N18.9 Chronic kidney disease, unspecified; Z80.0 Family history of malignant neoplasm of digestive organs; Z82.49 Family history of ischemic heart disease and other diseases of the circulatory system; Z83.3 Family history of diabetes mellitus; Z88.5 Allergy status to narcotic agent; Z79.899 Other long term (current) drug therapy; Z90.49 Acquired absence of other specified parts of digestive tract; Z88.8 Allergy status to other drugs, medicaments and biological substances
CPT/HCPCS: 36415; 71045; 71250; 80048; 80053; 81001; 82962; 83735; 84484; 85025; 85610; 85730; 93005; 93306; 96365; 96375; 97163; G0378; J1815; J1956; J2405

== ENCOUNTER 2019-10-31 22:18 | Emergency (ER) | payer OTHER ==
[~2019-10-31] VITALS: Ht 154.9 cm; Wt 72.6 kg
[2019-11-01 00:06] LABS: Basophils # (auto) 0.1 10 ^3/uL (0-0.2); Basophils % (auto) 0.5 % (0.0-2.0); Eosinophils # (auto) 0.4 10 ^3/uL (0-0.8); Eosinophils % (auto) 3.5 % (0.0-7.0); Hematocrit 36.3 % (36.0-46.0); Hemoglobin 12.1 g/dL (12.2-16.2); Lymphocytes # (auto) 1.6 10 ^3/uL (0.4-5.4); Lymphocytes % (auto) 14.7 % (10.0-50.0); Mean Corpuscular Hemoglobin 28.9 pg (28.0-32.0); Mean Corpuscular Hgb Conc. 33.3 g/dL (32.0-36.0); Mean Corpuscular Volume 86.8 fL (80.0-100.0); Monocytes # (auto) 0.6 10 ^3/uL (0-1.3); Monocytes % (auto) 5.4 % (0.0-12.0); Neutrophils # (auto) 8.3 10 ^3/uL (1.6-8.6); Neutrophils % (auto) 75.9 % (37.0-80.0); Nucleated Red Blood Cells % 0.1 %; Platelet Count (auto) 232 10^3/uL (140-450); Red Blood Cells 4.18 10^6/uL (4.0-5.20); Red Cell Distribution Width 12.9 % (11.8-14.3); White Blood Cell 10.9 10^3/uL (4.4-10.8)
[2019-11-01 00:26] LABS: Albumin 3.3 g/dL (3.4-5.0); BUN/Creatinine Ratio 22.5; Potassium 4.9 mmol/L (3.5-5.1)
[2019-11-01 00:28] LABS: Bilirubin, Total 0.3 mg/dL (0.2-1.0); Total Protein 6.9 g/dL (6.4-8.2)
[2019-11-01] MEDS ORDERED: methylPREDNISolone SOD SUCC 125 MG/2 ML VL IM ONE (02:15)
[2019-11-01 02:18] VITALS: BP 136/45
== END 2019-11-01 02:38 | disposition home or self-care (01) ==
LOC: EDUNIT# 22:18 → ER 22:18 → EDBD 22:18 → ER 11-01 02:38
DX: M47.816 Spondylosis without myelopathy or radiculopathy, lumbar region (principal); Z88.6 Allergy status to analgesic agent
CPT/HCPCS: 36415; 80053; 85025; 93005; 96372